=== PATIENT | female | born 1995 | race Caucasian/White ===

== ENCOUNTER 2017-04-23 20:20 | Inpatient (IN) | payer BC, OTHER ==
[~2017-04-23] VITALS: Ht 154.9 cm; Wt 57.0 kg
[2017-04-23] MEDS ORDERED: ZOLOFT50 MG PO (23:28)
[2017-04-23] MEDS ORDERED: CALCIUM600 MG PO (23:29)
[2017-04-23] MEDS ORDERED: VITAFOL-OB+DHA1 EACH PO (23:29)
[2017-04-23] MEDS ORDERED: MELATONIN5 M2 PO (23:30)
--- NOTE | 2017-04-25 08:32 | PR ---
[facility] [address] [facility] [place] [address] Signed PP Progress Notes Datetime Report Generated by CPN: 04/25/2017 08:31 SUBJECTIVE: [id number] Pain: Within normal limits Vital Signs: [id number] Vital Signs: Reviewed; Within Normal Limits EXAM: [id number] Cardiovascular: Not Done Respiratory: Not Done Abdomen/Uterus: Abnormal Lochia: Normal Vulva/Perineum: Not Done Breasts: Not Done CVA Tenderness: Not Done Extremities: Normal Incision: Not Applicable Progress: Abnormal Exam Comments: Fundus firm, NT @ U-1. IMPRESSION/PLAN/PROCEDURES: [id number] Impression: Normal progression; difficulties Plan: Continue present management; consult Progress Notes: Doing OK but difficulty with breast feeding. Signing Physician: Ambar Otto MD CC: *Electronically Signed* 04/25/17830 AMBAR OTTO MD PATIENT NAME: DANIELLE RAMOS PROGRESS NOTE DATE OF : 95 PHYSICIAN: AMBAR OTTO MD RPT #: [id number] REPORT IS CONFIDENTIAL AND NOT TO BE RELEASED WITHOUT AUTHORIZATION
--- NOTE | 2017-04-26 07:51 | PR ---
[facility] [address] [facility] [place] [address] Signed PP Progress Notes Datetime Report Generated by CPN: 04/26/2017 07:51 SUBJECTIVE: [id number] Pain: Within normal limits Vital Signs: [id number] Vital Signs: Reviewed; Within Normal Limits EXAM: [id number] Cardiovascular: Not Done Respiratory: Not Done Abdomen/Uterus: Abnormal Lochia: Normal Vulva/Perineum: Not Done Breasts: Not Done CVA Tenderness: Not Done Extremities: Normal Incision: Not Applicable Progress: Normal Exam Comments: Fundus firm, NT @ U-2. IMPRESSION/PLAN/PROCEDURES: [id number] Impression: Normal progression Plan: Discharge Procedures: None Progress Notes: Doing well. Will D/C today. Signing Physician: Ambar Otto MD CC: *Electronically Signed* 04/26/17 0751 AMBAR OTTO MD PATIENT NAME: DANIELLE RAMOS PROGRESS NOTE DATE OF : 95 PHYSICIAN: AMBAR OTTO MD RPT #: [id number] REPORT IS CONFIDENTIAL AND NOT TO BE RELEASED WITHOUT AUTHORIZATION
== END 2017-04-26 12:00 | disposition home or self-care (01) | DRG 775 ==
LOC: FBCO 20:20 → FBC 22:00
PROVIDERS: ADMIT Obstetrics & Gynecology
PROC: 10907ZC Drainage of Amniotic Fluid, Therapeutic from Products of Conception, Via Natural or Artificial Opening (ICD-10-PCS; 2017-04-23)
PROC: 00HU33Z Insertion of Infusion Device into Spinal Canal, Percutaneous Approach (ICD-10-PCS; 2017-04-23)
PROC: 3E0R3CZ (ICD-10-PCS; 2017-04-23)
PROC: 10E0XZZ Delivery of Products of Conception, External Approach (ICD-10-PCS; principal; 2017-04-24)
PROC: 0UQGXZZ Repair Vagina, External Approach (ICD-10-PCS; 2017-04-24)
DX: O71.4 Obstetric high vaginal laceration alone (principal); O99.324 Drug use complicating childbirth; F12.90 Cannabis use, unspecified, uncomplicated; O99.334 Smoking (tobacco) complicating childbirth; F17.200 Nicotine dependence, unspecified, uncomplicated; O99.344 Other mental disorders complicating childbirth; F32.9 Major depressive disorder, single episode, unspecified; Z87.74 Personal history of (corrected) congenital malformations of heart and circulatory system; Z79.899 Other long term (current) drug therapy; Z88.2 Allergy status to sulfonamides; Z3A.39 39 weeks gestation of pregnancy; Z37.0 Single live birth
CPT/HCPCS: 01960; 36415; 85027; 99406; J2590; J2795; J7120